=== PATIENT | female | born 1950 | race Caucasian/White ===

== ENCOUNTER 2017-01-05 07:52 | Day surgery (SDC) | payer MEDICARE ==
[~2017-01-05] VITALS: Ht 157.5 cm; Wt 52.6 kg
[~2017-01-05 07:52] MED LIST: KEN25CR EXT; SIMV10TA4 PO
[2017-01-05] MEDS ORDERED: 0.9% Sodium Chloride 1,000 ML IV SCH (07:55)
[2017-01-05] MEDS ORDERED: fentaNYL-PF 50 mCg/mL 2 mL Inj IVPUSH PRN ×2 (08:00→08:15)
[2017-01-05] MEDS ORDERED: Sodium Chloride LOK Flush 10 mL Syringe IV PRN (08:15)
[2017-01-05 08:17] VITALS: BP 108/70; PULSE 60; RESP 16; O2SAT 99
[2017-01-05] MEDS: 0.9% Sodium Chloride 1,000 ML IV PRN ×3 (08:34→08:50)
[2017-01-05 08:56] VITALS: BP 120/71; PULSE 73; RESP 16; O2SAT 99
[2017-01-05 09:06] VITALS: BP 108/66; PULSE 57; RESP 12; O2SAT 100
--- NOTE | 2017-01-05 09:10 | ENDO ---
[address] [address] ENDOSCOPY PROCEDURE PATIENT: CAITLIN LYNN : 1950 MR#: [id number] ADMIT: 01/05/2017 JOB ID: [id number] DATE OF SERVICE: 01/05/2017 PROCEDURE PERFORMED: Colonoscopy. INDICATIONS: Screening. ASA CLASSIFICATION: The patient's ASA classification is I. MALLAMPATI SCORE: Mallampati score was 1. MEDICATIONS: 1. Versed 2 mg. 2. Fentanyl 75 mcg. INSTRUMENT USED: PCF-H180AL. PREPARATION QUALITY: Good. PROCEDURE DETAILS: After informed consent was obtained, the patient was brought into the GI suite, where she was placed on oxygen via nasal cannula and monitored with continuous pulse oximeter, telemetry, and blood pressure monitoring. A time-out was performed. Then, she was placed in the left lateral decubitus position and medications were administered for sedation. Digital rectal exam was performed which was unremarkable. The colonoscope was then inserted into the rectum and advanced under direct visualization to the cecum, which was identified by the presence of the ileocecal valve and appendiceal orifice. Once the cecum was reached, the colonoscope was withdrawn back into the rectum, as the mucosa and lumen were examined. In the rectum, retroflexion was performed. Following retroflexion, remaining air in the rectum was suctioned, and procedure was completed. FINDINGS: 1. In the cecum there was a 6 mm, flat polyp. The appearance of the polyp appeared to be a serrated type polyp. The polyp was lifted using normal saline and then removed with a hot snare. 2. There was also a diminutive polyp in the cecum that was removed with cold biopsy forceps. 3. In the ascending colon there was a 3-4 mm sessile polyp that was removed with a cold snare. 4. Retroflexed views in the rectum revealed moderate-sized internal hemorrhoids. IMPRESSION: 1. Two cecal polyps. 2. Ascending polyp. 3. Internal hemorrhoids. RECOMMENDATIONS: 1. Avoid NSAIDs and anticoagulants for 72 hours. 2. Repeat colonoscopy pending polyp pathology results. COMPLICATIONS: None. ESTIMATED BLOOD LOSS: Less than 5 mL.
[2017-01-05 09:16] VITALS: BP 118/69; PULSE 62; RESP 14; O2SAT 100
[2017-01-05 09:26] VITALS: BP 122/71; PULSE 55; RESP 14; O2SAT 99
--- NOTE | 2017-01-06 14:15 | PATH ---
SURGICAL PATHOLOGY Attending Physician:Chela Gant CASE STATUS: Signed Out PATIENT NAME: CAITLIN LYNN PID: [id number] : 1950 DATE COLLECTED:01/05/2017 16:51 SPECIMEN: 1: Colon, Biopsy 2: Colon, Biopsy CLINICAL HISTORY: 1). CECAL POLYPS X2 2). 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 2.DESCENDING COLON POLYP: TUBULAR ADENOMA. ICD10 CODE D12.0 GROSS DESCRIPTION: The specimen is received in two formalin filled containers labeled with the patient's name. 1). The specimen is sublabeled "cecal polyps" and consists of 5 portions of tissue which aggregate to 0.4 x 0.4 x 0.2 CM. The specimen is entirely submitted in cassette 1A. 2). The specimen is sublabeled "descending colon polyp" and consists of a 0.3 x 0.3 x 0.2 CM portion of tissue which is entirely submitted in cassette 2A. 01/05/2017 [facility] MICRO DESCRIPTION: See diagnosis. ICD-9 CODES: CPT CODES: 1: 78978 2: 99245 Electronically Signed Out Deo Sidhu MD [facility] Pathology [facility] [address], [place] [address] Technical component performed at [facility], [facility] [address], [place], [address]
== END 2017-01-05 23:59 | disposition home or self-care (01) ==
LOC: END 07:52
PROVIDERS: ATTEND Internal Medicine Gastroenterology
DX: Z12.11 Encounter for screening for malignant neoplasm of colon (principal); D12.0 Benign neoplasm of cecum; D12.4 Benign neoplasm of descending colon; K64.8 Other hemorrhoids; E78.5 Hyperlipidemia, unspecified
CPT/HCPCS: 45380; 45381; 45385; 88305; 99153; G0500; J2250; J3010; J7030